=== PATIENT | female | born 1970 | race Caucasian/White ===

== ENCOUNTER → 2018-12-10 | Outpatient (CLI) | payer OTHER ==
--- NOTE | 2018-12-14 11:07 | MM ---
Reason for exam: clinical finding. Baseline mammogram. History: Took hormonal contraceptives beginning at age 16. Indicated problem(s): pain in both breasts. Physical Findings: Nurse did not find any significant physical abnormalities on exam. MG Diagnostic Mammo w CAD DELIA Bilateral CC and MLO view(s) were taken. The breast tissue is heterogeneously dense. This may lower the sensitivity of mammography. There are benign-appearing bilateral breast calcifications. ASSESSMENT: Incomplete: need additional imaging evaluation, BI-RAD 0 RECOMMENDATION: Ultrasound of both breasts.
--- NOTE | 2018-12-14 11:17 | USB ---
History: Took hormonal contraceptives beginning at age 16. US Breast Limited BILAT Bilateral multiple cystic areas. Right limited breast ultrasound including focal area of concern, retroareolar and axilla demonstrates a 4 x 4 x 3 mm oval cystic lesion at 10 o'clock, a 10 x 4 x 7 mm cystic lesion at 10 o'clock, a5 x 3 x 4 mm cystic lesion at 12 o'clock. Left limited breast ultrasound including focal area of concern, retroareolar and axilla demonstrates a 8 x 4 x 9 mm cystic cluster lesion at 12 o'clock, a 9 x 5 x 7 mm cystic lesion at 2 o'clock, a 34 x 15 x 25 mm cystic lesion at 3 o'clock. On both breast these all are anechoic with increased through transmission compatible with benign cysts. These results were verbally communicated with the patient and result sheet given to the patient on 12/10/18. ASSESSMENT: Benign, BI-RAD 2 RECOMMENDATION: Clinical management of both breasts for bilateral breast diffuse breast pain. Routine screening mammogram of both breasts in 1 year.
== END ==
LOC: RADMAMWWP 07:07
PROVIDERS: ATTEND Family Medicine
DX: N64.4 Mastodynia (principal); R92.8 Other abnormal and inconclusive findings on diagnostic imaging of breast
CPT/HCPCS: 77066

== ENCOUNTER 2018-12-12 20:10 | Emergency (ER) | payer OTHER ==
[2018-12-12] MEDS ORDERED: SODIUM CHLORIDE 0.9% 500 ML 500 ML IV STA (21:27)
[2018-12-12] MEDS ORDERED: ASPIRIN 81 MG PO STA (21:27)
[2018-12-12 21:43] LABS: Basophils # (A) 0.1 k/uL (0-0.2); Basophils % (A) 1 %; Eosinophils # (A) 0.1 k/uL (0-0.7); Eosinophils % (A) 2 %; HCT 41.2 % (34.0-46.0); HGB 13.8 gm/dL (11.4-16.0); Lymphocytes # (A) 2.6 k/uL (1.0-4.8); Lymphocytes % (A) 41 %; MCH 29.1 pg (25.0-35.0); MCHC 33.4 g/dL (31.0-37.0); MCV 87.1 fL (80.0-100.0); Mean Platelet Volume 8.5; Monocytes # (A) 0.4 k/uL (0-1.0); Monocytes % (A) 6 %; Neutrophils % (A) 46 %; Platelet Count 254 k/uL (150-450); RBC 4.73 m/uL (3.80-5.40); RDW 13.8 % (11.5-15.5); WBC 6.5 k/uL (3.8-10.6)
[2018-12-12 21:53] LABS: ALT 28 U/L (9-52); AST 23 U/L (14-36); Albumin 3.9 g/dL (3.5-5.0); Alkaline Phosphatase 72 U/L (38-126); Anion Gap 8 mmol/L; Blood Urea Nitrogen 10 mg/dL (7-17); Calcium 9.4 mg/dL (8.4-10.2); Carbon Dioxide 24 mmol/L (22-30); Chloride 107 mmol/L (98-107); Glucose 83 mg/dL (74-99); Magnesium 2.2 mg/dL (1.6-2.3); Potassium 4.2 mmol/L (3.5-5.1); Sodium 139 mmol/L (137-145); Total Bilirubin 0.5 mg/dL (0.2-1.3); Total Protein 6.7 g/dL (6.3-8.2)
--- NOTE | 2018-12-12 21:53 | XR ---
EXAMINATION TYPE: XR chest 2V DATE OF EXAM: 12/12/2018 COMPARISON: NONE HISTORY: Chest pain TECHNIQUE: Frontal and lateral views of the chest are obtained. FINDINGS: Heart and mediastinum are normal. Lungs are clear. Diaphragm is normal. Bony thorax appear s normal. IMPRESSION: Normal chest
[2018-12-12 21:54] LABS: INR 1.1 (<1.2); Prothrombin Time 11.4 sec (9.0-12.0)
[2018-12-12 22:03] LABS: Creatine Kinase 111 U/L (30-135)
[2018-12-12 22:05] VITALS: RESP 18
[2018-12-12 22:16] LABS: Creatine Kinase MB 1.1 ng/mL (0.0-2.4); Troponin I <0.012 ng/mL (0.000-0.034)
--- NOTE | 2018-12-12 22:26 | ED ---
Abdominal Pain HPI - General Chief Complaint: Abdominal Pain Stated Complaint: diarrhea, abd pain Time Seen by Provider: 12/12/18 21:10 Source: patient Mode of arrival: ambulatory Limitations: no limitations - History of Present Illness Initial Comments: 48-year-old female patient presents to the emergency department today for evaluation of chest pressure. Patient states that earlier today she had 2 episodes of diarrhea. Patient states shortly after taking some medications stop the diarrhea she started to have some chest pressure. Patient states is around 11:30 this morning. States that the chest pressure has persisted throughout the day so she thought she should come in for evaluation. Patient denies any sweats, nausea, vomiting, or shortness of breath with this. Patient denies any family history of heart conditions. States she is not a smoker. She denies any leg pain or swelling. Denies any cough or congestion. Denies any fevers or chills. Patient denies any recent rash, abdominal pain, back pain , numbness, tingling, dizziness, weakness, hematuria, dysuria, urinary urgency, urinary frequency, headache, visual changes, or any other complaints. - Related Data Home Medications Medication Instructions Recorded Confirmed Calcium Carbonate [Calcium] 600 mg PO DAILY 12/12/18 12/12/18 Cholestyramine (with Sugar) 4 gm PO DAILY 12/12/18 12/12/18 [Cholestyramine Packet] Cyanocobalamin [Vitamin B-12] 500 mcg PO DAILY 12/12/18 12/12/18 Magnesium 200 mg PO DAILY 12/12/18 12/12/18 Multivitamins, Thera [Multivitamin 1 tab PO DAILY 12/12/18 12/12/18 (formulary)] valACYclovir HCL [Valtrex] 1,000 mg PO Q12HR 12/12/18 12/12/18 Allergies Allergy/AdvReac Type Severity Reaction Status Date / Time No Known Allergies Allergy Verified 12/12/18 21:17 Review of Systems ROS Statement: Those systems with pertinent positive or pertinent negative responses have been documented in the HPI. ROS Other: All systems not noted in ROS Statement are negative. Past Medical History Past Medical History: No Reported History History of Any Multi-Drug Resistant Organisms: None Reported Past Surgical History: Tonsillectomy Additional Past Surgical History / Comment(s): hernia repair x 3 Past Psychological History: No Psychological Hx Reported Smoking Status: Former smoker Past Alcohol Use History: Rare Past Drug Use History: None Reported General Exam Limitations: no limitations General appearance: alert, in no apparent distress, other (This is a well- developed, well-nourished adult female patient in no acute distress. Vital signs upon presentation are temperature 98.0F, pulse 68, respirations 20, blood pressure 141/83, pulse ox 95% on room air.) Eye exam: Present: normal appearance, PERRL, EOMI. Absent: scleral icterus, conjunctival injection, periorbital swelling ENT exam: Present: normal exam, normal oropharynx, mucous membranes moist Respiratory exam: Present: normal lung sounds bilaterally. Absent: respiratory distress, wheezes, rales, rhonchi, stridor Cardiovascular Exam: Present: regular rate, normal rhythm, normal heart sounds. Absent: systolic murmur, diastolic murmur, rubs, gallop, clicks GI/Abdominal exam: Present: soft, normal bowel sounds. Absent: distended, tenderness, guarding, rebound, rigid Neurological exam: Present: alert, oriented X3, CN II-XII intact Psychiatric exam: Present: normal affect, normal mood Skin exam: Present: warm, dry, intact, normal color. Absent: rash Course Vital Signs 12/12/18 12/12/18 12/12/18 20:35 20:56 21:00 Temperature 98.0 F Pulse Rate 68 62 Respiratory 20 14 Rate Blood Pressure 141/83 145/88 O2 Sat by Pulse 95 96 96 Oximetry 12/12/18 12/12/18 22:00 22:58 Temperature 98.6 F Pulse Rate 61 62 Respiratory 18 18 Rate Blood Pressure 145/88 135/86 O2 Sat by Pulse 98 97 Oximetry Medical Decision Making - Medical Decision Making 40-year-old female patient presented to the emergency department today for evaluation of chest pressure that started around 11:30 this morning. Physical examination is unremarkable. Lungs are clear to auscultation with good air movement. Labs reviewed and are unremarkable. Troponin negative. EKG showed sinus bradycardia, no ST elevation or depression. Did discuss findings and results with the patient. She will be discharged home at this time to follow- up with her primary care physician for further evaluation and discussion of referral to cardiology for outpatient stress testing. Return parameters were discussed in detail. She verbalizes understanding and agrees this plan. - Lab Data Result diagrams: 12/12/18 21:04 12/12/18 21:04 Lab Results 12/12/18 12/12/18 12/12/18 Range/Units 21:04 21:04 21:04 WBC 6.5 (3.8-10.6) k/uL RBC 4.73 (3.80-5.40) m/uL Hgb 13.8 (11.4-16.0) gm/dL Hct 41.2 (34.0-46.0) % MCV 87.1 (80.0-100.0) fL MCH 29.1 (25.0-35.0) pg MCHC 33.4 (31.0-37.0) g/dL RDW 13.8 (11.5-15.5) % Plt Count 254 (150-450) k/uL Neutrophils % 46 % Lymphocytes % 41 % Monocytes % 6 % Eosinophils % 2 % Basophils % 1 % Neutrophils # 3.0 (1.3-7.7) k/uL Lymphocytes # 2.6 (1.0-4.8) k/uL Monocytes # 0.4 (0-1.0) k/uL Eosinophils # 0.1 (0-0.7) k/uL Basophils # 0.1 (0-0.2) k/uL PT (9.0-12.0) sec INR (<1.2) APTT (22.0-30.0) sec Sodium 139 (137-145) mmol/L Potassium 4.2 (3.5-5.1) mmol/L Chloride 107 (98-107) mmol/L Carbon Dioxide 24 (22-30) mmol/L Anion Gap 8 mmol/L BUN 10 (7-17) mg/dL Creatinine 0.73 (0.52-1.04) mg/dL Est GFR (CKD-EPI)AfAm >90 (>60 ml/min/1.73 sqM) Est GFR (CKD-EPI)NonAf >90 (>60 ml/min/1.73 sqM) Glucose 83 (74-99) mg/dL Calcium 9.4 (8.4-10.2) mg/dL Magnesium 2.2 (1.6-2.3) mg/dL Total Bilirubin 0.5 (0.2-1.3) mg/dL AST 23 (14-36) U/L ALT 28 (9-52) U/L Alkaline Phosphatase 72 (38-126) U/L Total Creatine Kinase 111 (30-135) U/L CK-MB (CK-2) 1.1 (0.0-2.4) ng/mL CK-MB (CK-2) Rel Index 1.0 Troponin I <0.012 (0.000-0.034) ng/mL Total Protein 6.7 (6.3-8.2) g/dL Albumin 3.9 (3.5-5.0) g/dL 12/12/18 Range/Units 21:04 WBC (3.8-10.6) k/uL RBC (3.80-5.40) m/uL Hgb (11.4-16.0) gm/dL Hct (34.0-46.0) % MCV (80.0-100.0) fL MCH (25.0-35.0) pg MCHC (31.0-37.0) g/dL RDW (11.5-15.5) % Plt Count (150-450) k/uL Neutrophils % % Lymphocytes % % Monocytes % % Eosinophils % % Basophils % % Neutrophils # (1.3-7.7) k/uL Lymphocytes # (1.0-4.8) k/uL Monocytes # (0-1.0) k/uL Eosinophils # (0-0.7) k/uL Basophils # (0-0.2) k/uL PT 11.4 (9.0-12.0) sec INR 1.1 (<1.2) APTT 26.0 (22.0-30.0) sec Sodium (137-145) mmol/L Potassium (3.5-5.1) mmol/L Chloride (98-107) mmol/L Carbon Dioxide (22-30) mmol/L Anion Gap mmol/L BUN (7-17) mg/dL Creatinine (0.52-1.04) mg/dL Est GFR (CKD-EPI)AfAm (>60 ml/min/1.73 sqM) Est GFR (CKD-EPI)NonAf (>60 ml/min/1.73 sqM) Glucose (74-99) mg/dL Calcium (8.4-10.2) mg/dL Magnesium (1.6-2.3) mg/dL Total Bilirubin (0.2-1.3) mg/dL AST (14-36) U/L ALT (9-52) U/L Alkaline Phosphatase (38-126) U/L Total Creatine Kinase (30-135) U/L CK-MB (CK-2) (0.0-2.4) ng/mL CK-MB (CK-2) Rel Index Troponin I (0.000-0.034) ng/mL Total Protein (6.3-8.2) g/dL Albumin (3.5-5.0) g/dL - EKG Data -: EKG Interpreted by Me EKG Comments: EKG obtained at 2122 shows sinus bradycardia with left axis deviation. Ventricular rate is 57, NE interval 180, QRS duration 92, QTc 444, QTC 432. No evidence of ST elevation or depression. - Radiology Data Radiology results: report reviewed, image reviewed Two-view x-ray of the chest is obtained. Report is reviewed in its entirety. Impression by Dr. Hendricks shows normal chest. Disposition Clinical Impression: Chest pain Disposition: HOME SELF-CARE Condition: Good Instructions: Chest Pain (ED) Additional Instructions: Follow-up with your primary care physician for recheck in 1-2 days. Discuss referral to cardiology for stress testing. Return to the emergency department for any new, worsening, or concerning symptoms. Is patient prescribed a controlled substance at d/c from ED?: No Referrals: Wilda Calzada DO [Primary Care Provider] - 1-2 days Time of Disposition: 22:26
[2018-12-12 22:59] VITALS: BP 135/86; PULSE 62; TEMP 98.6
== END 2018-12-12 22:59 | disposition home or self-care (01) ==
LOC: EC 20:10
DX: R07.9 Chest pain, unspecified (principal); R00.1 Bradycardia, unspecified; R10.13 Epigastric pain; R19.7 Diarrhea, unspecified; Z87.891 Personal history of nicotine dependence; Z98.890 Other specified postprocedural states; Z79.899 Other long term (current) drug therapy
CPT/HCPCS: 36415; 71046; 80053; 82550; 82553; 83735; 84484; 85025; 85610; 85730; 93005; 99284

== ENCOUNTER 2021-04-01 13:57 | Emergency (ER) | payer OTHER ==
[2021-04-01 14:03] VITALS: RESP 18
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
[2021-04-01] MEDS ORDERED: ACET/COD 300 MG/30 MG STARTER PACK 6 TAB BTL PO STA (15:37)
[2021-04-01 15:47] VITALS: BP 170/90; PULSE 67; TEMP 98
== END 2021-04-01 15:47 | disposition home or self-care (01) ==
LOC: EC 13:57
DX: S13.4XXA Sprain of ligaments of cervical spine, initial encounter (principal); F12.90 Cannabis use, unspecified, uncomplicated; Y93.89 Activity, other specified; Z90.09 Acquired absence of other part of head and neck; V89.2XXA Person injured in unspecified motor-vehicle accident, traffic, initial encounter
CPT/HCPCS: 70450; 72125; 99283